=== PATIENT | male | born 1955 | race Caucasian/White ===

== ENCOUNTER 2021-10-14 15:57 | Emergency (ER) | payer MEDICARE ==
[~2021-10-14 15:57] MED LIST: ACTOS30 MG PO; ASPIRIN81 MG PO; BRILINTA 90 MG90 MG PO; CELEXA40 MG PO; CITALOPRAM HBR20 MG PO; GLUCOPHAGE1000 MG PO; GLYBURIDE-METF1 EACH PO; INVOKANA100 MG PO; LEVOTHYROXINE50 MCG PO; LOPRESSOR 25 MG25 MG PO; MELOXICAM15 MG PO; NORCO 7.5-3251 EACH PO; OMEPRAZOLE20 MG PO; OMEPRAZOLE40 MG PO; PERCOCET 7.5-31 EACH PO; SKELAXIN TAB 8800 MG PO; SYNTHROID200 MCG PO; SYNTHROID75 MCG PO; VOLTAREN EC 7575 MG PO; ZOCOR40 MG PO
[2021-10-14] MEDS ORDERED: PROTONIX20 MG PO (21:15)
[2021-10-14] MEDS ORDERED: ZOFRAN ODT 4 MG4 MG PO (21:15)
== END 2021-10-14 21:25 | disposition home or self-care (01) ==
LOC: ER1 15:57
DX: T18.128A Food in esophagus causing other injury, initial encounter (principal); I25.10 Atherosclerotic heart disease of native coronary artery without angina pectoris; K22.2 Esophageal obstruction; Z95.5 Presence of coronary angioplasty implant and graft; I25.2 Old myocardial infarction; X58.XXXA Exposure to other specified factors, initial encounter
CPT/HCPCS: 96372; 99283; J1610; J2704; J7040

== ENCOUNTER → 2021-12-24 | Outpatient (CLI) | payer MEDICARE ==
[~2021-12-24] MED LIST changes: +PROTONIX20 MG PO; +ZOFRAN ODT 4 MG4 MG PO
== END ==
LOC: RAD 08:39
DX: R13.19 Other dysphagia (principal); K44.9 Diaphragmatic hernia without obstruction or gangrene; K22.2 Esophageal obstruction
CPT/HCPCS: 74221